=== PATIENT | male | born 2000 | race Two or more races ===

== ENCOUNTER 2022-02-05 18:22 | Emergency (ER) | payer OTHER ==
[~2022-02-05] VITALS: Ht 182.9 cm; Wt 167.8 kg
== END 2022-02-05 19:59 | disposition home or self-care (01) ==
LOC: ER 18:22 → EMR PED 18:35
DX: S01.341A Puncture wound with foreign body of right ear, initial encounter (principal)

== ENCOUNTER 2023-03-18 15:32 | Emergency (ER) | payer OTHER ==
[~2023-03-18] VITALS: Ht 182.9 cm; Wt 181.9 kg
[2023-03-18] MEDS ORDERED: AMOX-CLAV 875-1 EACH PO (22:50)
== END 2023-03-18 23:39 | disposition home or self-care (01) ==
LOC: ER 15:32
DX: R53.81 Other malaise (principal); J02.9 Acute pharyngitis, unspecified; R50.9 Fever, unspecified